=== PATIENT | male | born 1945 | race Caucasian/White ===

== ENCOUNTER 2020-09-01 11:28 | Inpatient (IN) ==
[2020-09-01 12:18] LABS: Nucleated Red Blood Cells 0.3 /100 WBC (0)
[2020-09-01 12:20] LABS: Hematocrit 36.7 % (37.5-50.1); Hemoglobin 12.3 g/dL (12.9-16.9); Immature Platelets 11.8 % (1.1-6.1); Mean Corpuscular HGB Conc 33.5 g/dL (31.6-35.5); Mean Corpuscular Hemoglobin 30.2 pg (28.0-33.3); Mean Corpuscular Volume 90.2 fL (83.0-100.0); Mean Platelet Volume 12.7 fL (9.4-12.4); Red Blood Count 4.07 M/mcL (4.19-5.50); Red Cell Distribution Width 13.5 % (11.5-14.5); White Blood Count 9.8 K/mcL (4.3-11.1)
[2020-09-01 12:23] LABS: Platelet Count 53 K/mcL (140-400)
[2020-09-01] MEDS ORDERED: 0.9 % Sodium Chloride 1,000 ML IVC ONE (12:37)
[2020-09-01 12:57] LABS: Alanine Aminotransferase 633 Units/L (7-52); Albumin 3.3 g/dL (3.5-5.7); Albumin/Globulin Ratio 1.4 (1.1-2.2); Alkaline Phosphatase 99 Units/L (34-104); Aspartate Amino Transferase 390 Units/L (13-39); BUN/Creatinine Ratio 43 (6-26); Bilirubin,Total 3.6 mg/dL (0.3-1.0); Blood Urea Nitrogen 62 mg/dL (8-23); Calcium 8.5 mg/dL (8.6-10.3); Carbon Dioxide 14 mEq/L (23-29); Chloride 92 mEq/L (98-107); Globulin 2.3 g/dL (2.4-3.5); Glucose 419 mg/dL (70-105); Osmolality,Calculated 299 (280-300); Potassium 4.8 mEq/L (3.5-5.1); Sodium 127 mEq/L (136-145); Total Protein 5.6 g/dL (6.4-8.9); Troponin I 0.28 ng/mL (< 0.04); eGFR For African Americans 58 (> 60); eGFR For Non-African Americans 48 (> 60)
[2020-09-01] MEDS ORDERED: cefTRIAXone 1,000 MG in 0.9 % Sodium Chloride Mini Bag 100 ML IVPB ONE (12:58)
[2020-09-01 12:59] LABS: INR 1.4; Prothrombin Time 15.9 Seconds (9.4-12.1)
[2020-09-01 13:01] LABS: Activated Partial Thrombo Time 27.5 Seconds (26.0-36.0)
[2020-09-01 13:15] LABS: Lymphocytes # 0.8 K/mcL (0.6-4.6); Monocytes # 0.7 K/mcL (0.0-1.3); Neutrophils # 8.1 K/mcL (1.6-8.9)
[2020-09-01 13:17] LABS: Platelet Estimate Decreased (Normal)
[2020-09-01 13:18] LABS: Reactive Lymphocytes Present (Not Present)
[2020-09-01] MEDS ORDERED: Dexamethasone 4 MG/ML VIAL IVP ONE (13:21)
[2020-09-01 13:27] LABS: Bilirubin,Urine Negative (Negative); Blood,Urine Negative (Negative); Clarity,Urine Clear (Clear); Color,Urine Yellow (Yellow); Glucose,Urine (UA) >=1000 mg/dL (Normal); Hyaline Casts,Urine Many per lpf (None Seen); Ketones,Urine 10 mg/dL (Negative); Leukocyte Esterase,Urine Negative (Negative); Nitrite,Urine Negative (Negative); PH,Urine 5.5 pH Units (5.0-8.0); Protein,Urine Trace mg/dL (Neg-Trace); RBC,Urine 0-3 per hpf (0-3); Specific Gravity,Urine 1.021 (1.010-1.025); Urobilinogen,Urine Normal (Normal); WBC,Urine 0-3 per hpf (0-3)
[2020-09-01 13:44] LABS: SARS-CoV-2 DETECTED (Not Detect)
[2020-09-01 13:46] LABS: Adenovirus Not Detected (Not Detect); Bordetella Pertussis Not Detected (Not Detect); Chlamydophila pneumoniae Not Detected (Not Detect); Coronavirus 229E Not Detected (Not Detect); Coronavirus HKU1 Not Detected (Not Detect); Coronavirus NL63 Not Detected (Not Detect); Coronavirus OC43 Not Detected (Not Detect); Human Metapneumovirus Not Detected (Not Detect); Human Rhinovirus/Enterovirus Not Detected (Not Detect); Influenza A Subtype 2009 H1 Not Detected (Not Detect); Influenza B Not Detected (Not Detect); Mycoplasma pneumoniae Not Detected (Not Detect); Parainfluenza Virus 1 Not Detected (Not Detect); Parainfluenza Virus 2 Not Detected (Not Detect); Parainfluenza Virus 3 Not Detected (Not Detect); Parainfluenza Virus 4 Not Detected (Not Detect); Respiratory Syncytial Virus Not Detected (Not Detect)
[2020-09-01 14:01] LABS: Magnesium 2.5 mg/dL (1.6-2.6); Phosphorous 5.3 mg/dL (2.7-4.5)
[2020-09-01] MEDS ORDERED: Naloxone 0.4 MG/ML INJ IVP PRN (16:13)
[2020-09-01] MEDS ORDERED: Ondansetron 4 MG/2 ML VIAL IVP PRN (16:13)
[2020-09-01] MEDS ORDERED: *HR* Dextrose 50 % in Water (Vial) 50 ML VIAL IVP PRN (16:15)
[2020-09-01] MEDS ORDERED: Dextrose Gel 15 GM/37.5 ML TUBE PO PRN ×2 (16:15)
[2020-09-01] MEDS ORDERED: D5% in Water 1,000 ML IVC PRN (16:15)
[2020-09-01] MEDS ORDERED: Insulin Human Regular 15 UNIT in 0.9 % Sodium Chloride 10 ML IV ONE (16:16)
[2020-09-01] MEDS ORDERED: Sodium Bicarbonate 150 MEQ in Water for inj. (sterile) 1,000 ML IVC SCH ×2 (16:17→17:30)
[2020-09-01] MEDS ORDERED: Azithromycin 500 MG in 0.9 % Sodium Chloride 250 ML IVPB SCH (17:00)
[2020-09-01] MEDS ORDERED: 0.9 % Sodium Chloride 1,000 ML IVC SCH (17:15)
[2020-09-01 17:40] LABS: ABG Base Excess -6 mEq/L (-2 to 3); ABG HCO3 17 mEq/L (21-27); ABG Oxygen Saturation 92 % (95-98); ABG PCO2 26 mmHg (35-45); ABG PH 7.43 pH Units (7.32-7.45); ABG PO2 60 mmHg (85-104); ABG TCO2 18 mEq/L (20-26); Blood Gas Pressure Support 10 cm H2O
[2020-09-01] MEDS: DilTIAZem 50 MG/50 ML IV.SOLN IVC SCH ×2 (17:54→22:49)
[2020-09-01 18:07] LABS: C-Reactive Protein 156 mg/L (Less than 10); Lactate Dehydrogenase 701 Units/L (140-271)
[2020-09-01 18:13] LABS: Ferritin > 1500 ng/mL (20-250)
[2020-09-01] MEDS: Doxycycline 100 MG in 0.9 % Sodium Chloride Mini Bag 100 ML IVPB SCH (18:33)
[2020-09-01 19:16] LABS: Hematocrit 32.7 % (37.5-50.1); Hemoglobin 11.4 g/dL (12.9-16.9)
[2020-09-01 19:29] LABS: Acetaminophen < 10 mcg/mL (10-20); BUN/Creatinine Ratio 54 (6-26); Blood Urea Nitrogen 51 mg/dL (8-23); Calcium 8.2 mg/dL (8.6-10.3); Carbon Dioxide 18 mEq/L (23-29); Chloride 102 mEq/L (98-107); Glucose 214 mg/dL (70-105); Osmolality,Calculated 292 (280-300); Potassium 4.2 mEq/L (3.5-5.1); Salicylate < 2.5 mg/dL (15.0-30.0); Sodium 131 mEq/L (136-145); eGFR For African Americans > 60 (> 60); eGFR For Non-African Americans > 60 (> 60)
[2020-09-01] MEDS: Insulin LISPRO 300 UNITS/3 ML VIAL SUBQ SCH (20:36)
[2020-09-02 03:39] LABS: Basophils % 0.3 %; Hematocrit 31.5 % (37.5-50.1); Hemoglobin 11.1 g/dL (12.9-16.9); Mean Corpuscular HGB Conc 35.2 g/dL (31.6-35.5); Mean Corpuscular Hemoglobin 31.4 pg (28.0-33.3); Mean Corpuscular Volume 89.2 fL (83.0-100.0); Red Blood Count 3.53 M/mcL (4.19-5.50); Red Cell Distribution Width 13.7 % (11.5-14.5)
[2020-09-02 03:41] LABS: Immature Granulocytes % 6.4 % (0-4); Immature Platelets 6.7 % (1.1-6.1); Lymphocytes # 0.6 K/mcL (0.6-4.6); Lymphocytes % 8.4 %; Mean Platelet Volume 12.2 fL (9.4-12.4); Monocytes # 0.5 K/mcL (0.0-1.3); Monocytes % 6.3 %; Nucleated Red Blood Cells 1.3 /100 WBC (0); Segmented Neutrophils % 78.6 %; White Blood Count 7.2 K/mcL (4.3-11.1)
[2020-09-02 04:02] LABS: Alanine Aminotransferase 428 Units/L (7-52); Albumin 2.9 g/dL (3.5-5.7); Albumin/Globulin Ratio 1.6 (1.1-2.2); Alkaline Phosphatase 88 Units/L (34-104); Aspartate Amino Transferase 168 Units/L (13-39); BUN/Creatinine Ratio 53 (6-26); Bilirubin,Direct 0.5 mg/dL (0.0-0.2); Bilirubin,Indirect 1.4 mg/dL (0.0-1.0); Bilirubin,Total 1.9 mg/dL (0.3-1.0); Blood Urea Nitrogen 43 mg/dL (8-23); Calcium 7.9 mg/dL (8.6-10.3); Carbon Dioxide 21 mEq/L (23-29); Chloride 101 mEq/L (98-107); Globulin 1.8 g/dL (2.4-3.5); Glucose 171 mg/dL (70-105); Osmolality,Calculated 289 (280-300); Potassium 4.3 mEq/L (3.5-5.1); Sodium 132 mEq/L (136-145); Total Protein 4.7 g/dL (6.4-8.9); eGFR For African Americans > 60 (> 60); eGFR For Non-African Americans > 60 (> 60)
[2020-09-02 04:09] LABS: Neutrophils # 5.7 K/mcL (1.6-8.9); Platelet Count 37 K/mcL (140-400); Platelet Estimate Decreased (Normal)
[2020-09-02] MEDS: Insulin LISPRO 300 UNITS/3 ML VIAL SUBQ SCH ×7 (04:12→20:28)
[2020-09-02 05:45] LABS: Troponin I 0.17 ng/mL (< 0.04)
[2020-09-02] MEDS: Doxycycline 100 MG in 0.9 % Sodium Chloride Mini Bag 100 ML IVPB SCH ×2 (05:45→17:53)
[2020-09-02] MEDS: Pantoprazole 40 MG VIAL IVP SCH ×2 (05:46→17:54)
[2020-09-02 05:52] LABS: ABG Base Excess 2 mEq/L (-2 to 3); ABG HCO3 25 mEq/L (21-27); ABG Oxygen Saturation 97 % (95-98); ABG PCO2 31 mmHg (35-45); ABG PH 7.52 pH Units (7.32-7.45); ABG PO2 82 mmHg (85-104); ABG TCO2 26 mEq/L (20-26)
[2020-09-02] MEDS ORDERED: Insulin DETEMIR 100 UNIT/ML X5UNITS SUBQ SCH (08:00)
[2020-09-02] MEDS: cefTRIAXone 1,000 MG in Water for inj. (sterile) 10 ML IVP SCH (08:02)
[2020-09-02] MEDS: Dexamethasone 4 MG/ML VIAL IVP SCH (08:03)
[2020-09-02] MEDS: Furosemide 40 MG/4 ML VIAL IVP SCH ×2 (11:13→20:10)
[2020-09-02] MEDS: Loratadine 10 MG TABLET PO SCH (11:14)
[2020-09-02] MEDS: Ipratropium 1 PUFF INHALER IH SCH ×4 (11:20→23:47)
[2020-09-02] MEDS: Metoprolol XL (24 HR) Succ 50 MG TAB.ER.24H PO SCH (20:11)
[2020-09-02] MEDS: Pregabalin 50 MG CAPSULE PO SCH (20:11)
[2020-09-03] MEDS: Ipratropium 1 PUFF INHALER IH SCH ×5 (04:14→19:53)
[2020-09-03] MEDS: Pantoprazole 40 MG VIAL IVP SCH ×2 (05:37→18:10)
[2020-09-03] MEDS: Doxycycline 100 MG in 0.9 % Sodium Chloride Mini Bag 100 ML IVPB SCH ×2 (05:37→18:10)
[2020-09-03 07:05] LABS: Fibrinogen 341 mg/dL (169-393)
[2020-09-03 07:12] LABS: D-Dimer 7014 ng/mLFEU (0-500)
[2020-09-03 07:26] LABS: Hemoglobin 10.2 g/dL (12.9-16.9)
[2020-09-03 07:28] LABS: Hematocrit 29.6 % (37.5-50.1); Immature Platelets 8.1 % (1.1-6.1); Mean Corpuscular HGB Conc 34.5 g/dL (31.6-35.5); Mean Corpuscular Hemoglobin 31.5 pg (28.0-33.3); Mean Corpuscular Volume 91.4 fL (83.0-100.0); Mean Platelet Volume 11.2 fL (9.4-12.4); Nucleated Red Blood Cells 1.2 /100 WBC (0); Red Blood Count 3.24 M/mcL (4.19-5.50); Red Cell Distribution Width 13.7 % (11.5-14.5); White Blood Count 5.8 K/mcL (4.3-11.1)
[2020-09-03 07:57] LABS: Albumin 2.8 g/dL (3.5-5.7); Albumin/Globulin Ratio 1.8 (1.1-2.2); Bilirubin,Direct 0.4 mg/dL (0.0-0.2); Bilirubin,Indirect 1.2 mg/dL (0.0-1.0); Bilirubin,Total 1.6 mg/dL (0.3-1.0); Globulin 1.6 g/dL (2.4-3.5); Total Protein 4.4 g/dL (6.4-8.9)
[2020-09-03 08:02] LABS: BUN/Creatinine Ratio 41 (6-26); Blood Urea Nitrogen 38 mg/dL (8-23); Calcium 7.7 mg/dL (8.6-10.3); Carbon Dioxide 26 mEq/L (23-29); Chloride 101 mEq/L (98-107); Glucose 154 mg/dL (70-105); Magnesium 2.4 mg/dL (1.6-2.6); Osmolality,Calculated 294 (280-300); Potassium 3.7 mEq/L (3.5-5.1); Sodium 136 mEq/L (136-145); eGFR For African Americans > 60 (> 60); eGFR For Non-African Americans > 60 (> 60)
[2020-09-03 08:11] LABS: Platelet Count 35 K/mcL (140-400)
[2020-09-03] MEDS: Insulin LISPRO 300 UNITS/3 ML VIAL SUBQ SCH ×4 (08:18→20:31)
[2020-09-03] MEDS: cefTRIAXone 1,000 MG in Water for inj. (sterile) 10 ML IVP SCH (08:19)
[2020-09-03] MEDS: Loratadine 10 MG TABLET PO SCH (08:21)
[2020-09-03] MEDS: Dexamethasone 4 MG/ML VIAL IVP SCH (08:22)
[2020-09-03] MEDS: Furosemide 40 MG/4 ML VIAL IVP SCH ×2 (08:23→20:29)
[2020-09-03] MEDS: Insulin DETEMIR 100 UNIT/ML X5UNITS SUBQ SCH (08:24)
[2020-09-03 12:51] LABS: Lymphocytes # 0.4 K/mcL (0.6-4.6); Monocytes # 0.5 K/mcL (0.0-1.3); Neutrophils # 4.9 K/mcL (1.6-8.9); Platelet Estimate Marked Decrease (Normal)
[2020-09-03] MEDS: Metoprolol XL (24 HR) Succ 50 MG TAB.ER.24H PO SCH (20:29)
[2020-09-03] MEDS: Pregabalin 50 MG CAPSULE PO SCH (20:29)
[2020-09-04] MEDS: Ipratropium 1 PUFF INHALER IH SCH ×7 (00:06→23:47)
[2020-09-04 02:40] LABS: Nucleated Red Blood Cells 0.6 /100 WBC (0); Red Cell Distribution Width 13.4 % (11.5-14.5)
[2020-09-04 02:41] LABS: Basophils % 0.2 %; Eosinophils % 0.4 %; Hematocrit 29.4 % (37.5-50.1); Hemoglobin 10.2 g/dL (12.9-16.9); Immature Granulocytes % 9.6 % (0-4); Immature Platelets 6.8 % (1.1-6.1); Lymphocytes # 0.3 K/mcL (0.6-4.6); Lymphocytes % 5.8 %; Mean Corpuscular HGB Conc 34.7 g/dL (31.6-35.5); Mean Corpuscular Hemoglobin 31.1 pg (28.0-33.3); Mean Corpuscular Volume 89.6 fL (83.0-100.0); Mean Platelet Volume 11.2 fL (9.4-12.4); Monocytes # 0.5 K/mcL (0.0-1.3); Monocytes % 9.6 %; Neutrophils # 3.7 K/mcL (1.6-8.9); Red Blood Count 3.28 M/mcL (4.19-5.50); Segmented Neutrophils % 74.4 %
[2020-09-04 02:43] LABS: Fibrinogen 258 mg/dL (169-393)
[2020-09-04 02:52] LABS: Albumin 2.7 g/dL (3.5-5.7); Albumin/Globulin Ratio 1.8 (1.1-2.2); Bilirubin,Direct 0.5 mg/dL (0.0-0.2); Bilirubin,Indirect 1.2 mg/dL (0.0-1.0); Bilirubin,Total 1.7 mg/dL (0.3-1.0); Globulin 1.5 g/dL (2.4-3.5); Total Protein 4.2 g/dL (6.4-8.9)
[2020-09-04 02:53] LABS: D-Dimer 10286 ng/mLFEU (0-500)
[2020-09-04 02:54] LABS: BUN/Creatinine Ratio 44 (6-26); Blood Urea Nitrogen 38 mg/dL (8-23); Calcium 7.6 mg/dL (8.6-10.3); Carbon Dioxide 28 mEq/L (23-29); Chloride 100 mEq/L (98-107); Glucose 180 mg/dL (70-105); Magnesium 2.3 mg/dL (1.6-2.6); Osmolality,Calculated 294 (280-300); Phosphorous 3.5 mg/dL (2.7-4.5); Sodium 135 mEq/L (136-145); eGFR For African Americans > 60 (> 60); eGFR For Non-African Americans > 60 (> 60)
[2020-09-04 02:55] LABS: % Iron Saturation 32 % (20-55); Iron 63 mcg/dL (65-175); Transferrin 139 mg/dL (203-362)
[2020-09-04 03:04] LABS: Platelet Count 29 K/mcL (140-400)
[2020-09-04 03:14] LABS: Ferritin 1398 ng/mL (20-250)
[2020-09-04 03:22] LABS: Folate > 22.3 ng/mL (3.0-16.0); Vitamin B12 > 1500 pg/mL (250-1100)
[2020-09-04 03:24] LABS: Platelet Estimate Marked Decrease (Normal); Reactive Lymphocytes Present (Not Present)
[2020-09-04] MEDS: Pantoprazole 40 MG VIAL IVP SCH ×2 (05:30→17:18)
[2020-09-04] MEDS: Doxycycline 100 MG in 0.9 % Sodium Chloride Mini Bag 100 ML IVPB SCH (05:30)
[2020-09-04] MEDS ORDERED: 0.9 % Sodium Chloride 250 ML IVC SCH (07:30)
[2020-09-04] MEDS: cefTRIAXone 1,000 MG in Water for inj. (sterile) 10 ML IVP SCH (08:04)
[2020-09-04] MEDS: Insulin DETEMIR 100 UNIT/ML X5UNITS SUBQ SCH (08:05)
[2020-09-04] MEDS: Loratadine 10 MG TABLET PO SCH (08:05)
[2020-09-04] MEDS: Dexamethasone 4 MG/ML VIAL IVP SCH (08:06)
[2020-09-04] MEDS: Furosemide 40 MG/4 ML VIAL IVP SCH ×2 (08:06→21:08)
[2020-09-04] MEDS: Insulin LISPRO 300 UNITS/3 ML VIAL SUBQ SCH ×4 (08:07→21:09)
[2020-09-04] MEDS: Metoprolol XL (24 HR) Succ 50 MG TAB.ER.24H PO SCH (21:08)
[2020-09-04] MEDS: Pregabalin 50 MG CAPSULE PO SCH (21:09)
[2020-09-04] MEDS: Doxycycline 100 MG CAPSULE PO SCH (21:09)
[2020-09-05] MEDS: Ipratropium 1 PUFF INHALER IH SCH ×6 (03:50→23:09)
[2020-09-05] MEDS: Pantoprazole 40 MG VIAL IVP SCH ×2 (04:59→18:06)
[2020-09-05 06:46] LABS: Hematocrit 31.4 % (37.5-50.1); Hemoglobin 10.8 g/dL (12.9-16.9); Mean Corpuscular HGB Conc 34.4 g/dL (31.6-35.5); Mean Corpuscular Hemoglobin 30.7 pg (28.0-33.3); Mean Corpuscular Volume 89.2 fL (83.0-100.0); Mean Platelet Volume 11.8 fL (9.4-12.4); Red Blood Count 3.52 M/mcL (4.19-5.50); White Blood Count 5.4 K/mcL (4.3-11.1)
[2020-09-05 06:49] LABS: Platelet Count 24 K/mcL (140-400)
[2020-09-05 07:05] LABS: BUN/Creatinine Ratio 46 (6-26); Blood Urea Nitrogen 32 mg/dL (8-23); Calcium 7.8 mg/dL (8.6-10.3); Carbon Dioxide 27 mEq/L (23-29); Chloride 103 mEq/L (98-107); Glucose 119 mg/dL (70-105); Magnesium 2.3 mg/dL (1.6-2.6); Osmolality,Calculated 290 (280-300); Sodium 136 mEq/L (136-145); eGFR For African Americans > 60 (> 60); eGFR For Non-African Americans > 60 (> 60)
[2020-09-05] MEDS: Insulin LISPRO 300 UNITS/3 ML VIAL SUBQ SCH ×4 (07:43→20:32)
[2020-09-05] MEDS ORDERED: 0.9 % Sodium Chloride 250 ML IVC SCH (08:00)
[2020-09-05 08:42] LABS: Lymphocytes # 0.5 K/mcL (0.6-4.6); Monocytes # 0.4 K/mcL (0.0-1.3); Neutrophils # 4.4 K/mcL (1.6-8.9); Platelet Estimate Decreased (Normal)
[2020-09-05] MEDS: cefTRIAXone 1,000 MG in Water for inj. (sterile) 10 ML IVP SCH (08:43)
[2020-09-05] MEDS: Furosemide 40 MG/4 ML VIAL IVP SCH ×2 (08:44→20:01)
[2020-09-05] MEDS: Dexamethasone 4 MG/ML VIAL IVP SCH (08:45)
[2020-09-05] MEDS: Doxycycline 100 MG CAPSULE PO SCH ×2 (08:45→20:01)
[2020-09-05] MEDS: Insulin DETEMIR 100 UNIT/ML X5UNITS SUBQ SCH (08:48)
[2020-09-05] MEDS: Loratadine 10 MG TABLET PO SCH (08:48)
[2020-09-05 12:13] LABS: ABG Base Excess 4 mEq/L (-2 to 3); ABG HCO3 26 mEq/L (21-27); ABG Oxygen Saturation 93 % (95-98); ABG PCO2 31 mmHg (35-45); ABG PH 7.53 pH Units (7.32-7.45); ABG PO2 60 mmHg (85-104); ABG TCO2 27 mEq/L (20-26)
[2020-09-05] MEDS: Pregabalin 50 MG CAPSULE PO SCH (20:01)
[2020-09-05] MEDS: Metoprolol XL (24 HR) Succ 50 MG TAB.ER.24H PO SCH (20:01)
[2020-09-05] MEDS: Artificial Tears SOLN 15 ML BOTTLE BOTH EYES SCH (20:02)
[2020-09-06] MEDS: Ipratropium 1 PUFF INHALER IH SCH ×5 (03:49→20:18)
[2020-09-06 04:48] LABS: VBG HCO3 29 mEq/L (21-27); VBG PCO2 35 mmHg (41-51); VBG PH 7.52 pH Units (7.32-7.42); VBG PO2 75 mmHg (25-50)
[2020-09-06 04:51] LABS: Hemoglobin 11.6 g/dL (12.9-16.9); Mean Corpuscular Hemoglobin 30.5 pg (28.0-33.3)
[2020-09-06 04:52] LABS: Hematocrit 34.1 % (37.5-50.1); Immature Platelets 5.5 % (1.1-6.1); Mean Corpuscular Volume 89.7 fL (83.0-100.0); Mean Platelet Volume 10.2 fL (9.4-12.4); Red Cell Distribution Width 13.9 % (11.5-14.5); White Blood Count 6.2 K/mcL (4.3-11.1)
[2020-09-06 05:04] LABS: BUN/Creatinine Ratio 45 (6-26); Blood Urea Nitrogen 33 mg/dL (8-23); Calcium 8.6 mg/dL (8.6-10.3); Carbon Dioxide 26 mEq/L (23-29); Chloride 100 mEq/L (98-107); Glucose 160 mg/dL (70-105); Magnesium 2.2 mg/dL (1.6-2.6); Osmolality,Calculated 289 (280-300); Platelet Count 34 K/mcL (140-400); Potassium 4.1 mEq/L (3.5-5.1); Sodium 134 mEq/L (136-145); eGFR For African Americans > 60 (> 60); eGFR For Non-African Americans > 60 (> 60)
[2020-09-06] MEDS: Pantoprazole 40 MG VIAL IVP SCH ×2 (05:45→17:00)
[2020-09-06 06:18] LABS: Monocytes # 0.3 K/mcL (0.0-1.3); Platelet Estimate Normal (Normal); Reactive Lymphocytes Present (Not Present)
[2020-09-06] MEDS: Insulin LISPRO 300 UNITS/3 ML VIAL SUBQ SCH ×4 (07:33→20:05)
[2020-09-06] MEDS: Loratadine 10 MG TABLET PO SCH (09:26)
[2020-09-06] MEDS: Sennosides/Docusate Sodium TABLET PO SCH (09:26)
[2020-09-06] MEDS: Doxycycline 100 MG CAPSULE PO SCH ×2 (09:26→19:36)
[2020-09-06] MEDS: cefTRIAXone 1,000 MG in Water for inj. (sterile) 10 ML IVP SCH (09:26)
[2020-09-06] MEDS: Dexamethasone 4 MG/ML VIAL IVP SCH (09:27)
[2020-09-06] MEDS: Furosemide 40 MG/4 ML VIAL IVP SCH ×2 (09:27→19:36)
[2020-09-06] MEDS: Insulin DETEMIR 100 UNIT/ML X5UNITS SUBQ SCH (09:28)
[2020-09-06] MEDS: Artificial Tears SOLN 15 ML BOTTLE BOTH EYES SCH ×4 (09:29→20:05)
[2020-09-06] MEDS ORDERED: Morphine Sulfate 2 MG/ML SYRINGE IVP PRN (15:44)
[2020-09-06] MEDS: Metoprolol XL (24 HR) Succ 50 MG TAB.ER.24H PO SCH (19:36)
[2020-09-06] MEDS: Pregabalin 50 MG CAPSULE PO SCH (19:36)
[2020-09-07] MEDS: Ipratropium 1 PUFF INHALER IH SCH ×6 (00:20→20:14)
[2020-09-07 03:16] LABS: Basophils % 0.1 %; Hematocrit 35.2 % (37.5-50.1); Hemoglobin 12.3 g/dL (12.9-16.9); Immature Granulocytes % 4.3 % (0-4); Immature Platelets 8.7 % (1.1-6.1); Lymphocytes # 0.5 K/mcL (0.6-4.6); Mean Corpuscular HGB Conc 34.9 g/dL (31.6-35.5); Mean Corpuscular Hemoglobin 30.7 pg (28.0-33.3); Mean Corpuscular Volume 87.8 fL (83.0-100.0); Mean Platelet Volume 11.8 fL (9.4-12.4); Monocytes # 0.5 K/mcL (0.0-1.3); Monocytes % 6.1 %; Neutrophils # 6.4 K/mcL (1.6-8.9); Red Blood Count 4.01 M/mcL (4.19-5.50); Red Cell Distribution Width 14.3 % (11.5-14.5); Segmented Neutrophils % 82.5 %; White Blood Count 7.7 K/mcL (4.3-11.1)
[2020-09-07 03:19] LABS: Platelet Count 25 K/mcL (140-400)
[2020-09-07 03:28] LABS: D-Dimer 7066 ng/mLFEU (0-500); Fibrinogen 391 mg/dL (169-393)
[2020-09-07 03:34] LABS: BUN/Creatinine Ratio 51 (6-26); Blood Urea Nitrogen 37 mg/dL (8-23); Calcium 8.8 mg/dL (8.6-10.3); Carbon Dioxide 26 mEq/L (23-29); Chloride 99 mEq/L (98-107); Glucose 152 mg/dL (70-105); Osmolality,Calculated 290 (280-300); Phosphorous 3.8 mg/dL (2.7-4.5); Potassium 3.9 mEq/L (3.5-5.1); Sodium 134 mEq/L (136-145); eGFR For African Americans > 60 (> 60); eGFR For Non-African Americans > 60 (> 60)
[2020-09-07 05:14] LABS: ABG Base Excess 3 mEq/L (-2 to 3); ABG HCO3 26 mEq/L (21-27); ABG Oxygen Saturation 99 % (95-98); ABG PCO2 31 mmHg (35-45); ABG PH 7.53 pH Units (7.32-7.45); ABG PO2 123 mmHg (85-104); ABG TCO2 27 mEq/L (20-26)
[2020-09-07] MEDS: Pantoprazole 40 MG VIAL IVP SCH ×2 (05:23→17:38)
[2020-09-07] MEDS: *HR* LORazepam 2 MG/ML VIAL IVP PRN ×2 (05:23→20:22)
[2020-09-07] MEDS ORDERED: 0.9 % Sodium Chloride 250 ML IVC SCH (07:45)
[2020-09-07] MEDS: Insulin LISPRO 300 UNITS/3 ML VIAL SUBQ SCH ×4 (08:02→20:20)
[2020-09-07] MEDS: Sennosides/Docusate Sodium TABLET PO SCH (08:08)
[2020-09-07] MEDS: Dexamethasone 4 MG/ML VIAL IVP SCH (08:08)
[2020-09-07] MEDS: Loratadine 10 MG TABLET PO SCH (08:08)
[2020-09-07] MEDS: cefTRIAXone 1,000 MG in Water for inj. (sterile) 10 ML IVP SCH (08:08)
[2020-09-07] MEDS: Doxycycline 100 MG CAPSULE PO SCH ×2 (08:08→20:19)
[2020-09-07] MEDS: Insulin DETEMIR 100 UNIT/ML X5UNITS SUBQ SCH (08:16)
[2020-09-07] MEDS: Furosemide 40 MG/4 ML VIAL IVP SCH ×2 (08:18→20:21)
[2020-09-07 09:17] LABS: Thyroid Stimulating Hormone 1.932 mcIU/mL (0.340-5.600)
[2020-09-07] MEDS: Artificial Tears SOLN 15 ML BOTTLE BOTH EYES SCH ×4 (09:55→20:16)
[2020-09-07] MEDS: Pregabalin 50 MG CAPSULE PO SCH (20:20)
[2020-09-07] MEDS: Metoprolol XL (24 HR) Succ 50 MG TAB.ER.24H PO SCH (20:20)
[2020-09-07] MEDS ORDERED: Haloperidol Lactate 5 MG/ML VIAL IVP ONE (21:23)
[2020-09-07] MEDS: Dexmedetomidine HCl 400 MCG/100 ML MLS IVC SCH (23:11)
[2020-09-08] MEDS: Ipratropium 1 PUFF INHALER IH SCH ×7 (00:13→23:52)
[2020-09-08 03:43] LABS: Basophils % 0.1 %
[2020-09-08 03:45] LABS: D-Dimer 5365 ng/mLFEU (0-500); Hematocrit 35.8 % (37.5-50.1); Hemoglobin 12.5 g/dL (12.9-16.9); Immature Granulocytes % 3.9 % (0-4); Immature Platelets 5.6 % (1.1-6.1); Lymphocytes # 0.5 K/mcL (0.6-4.6); Lymphocytes % 5.8 %; Mean Corpuscular HGB Conc 34.9 g/dL (31.6-35.5); Mean Corpuscular Hemoglobin 31.1 pg (28.0-33.3); Mean Corpuscular Volume 89.1 fL (83.0-100.0); Mean Platelet Volume 11.2 fL (9.4-12.4); Monocytes # 0.6 K/mcL (0.0-1.3); Monocytes % 7.3 %; Red Blood Count 4.02 M/mcL (4.19-5.50); Red Cell Distribution Width 14.5 % (11.5-14.5); Segmented Neutrophils % 82.9 %; White Blood Count 8.4 K/mcL (4.3-11.1)
[2020-09-08 03:47] LABS: Platelet Count 43 K/mcL (140-400)
[2020-09-08 03:48] LABS: Fibrinogen 377 mg/dL (169-393)
[2020-09-08 04:05] LABS: BUN/Creatinine Ratio 62 (6-26); Blood Urea Nitrogen 39 mg/dL (8-23); Calcium 8.7 mg/dL (8.6-10.3); Carbon Dioxide 28 mEq/L (23-29); Chloride 99 mEq/L (98-107); Glucose 62 mg/dL (70-105); Osmolality,Calculated 293 (280-300); Potassium 3.4 mEq/L (3.5-5.1); Sodium 138 mEq/L (136-145); eGFR For African Americans > 60 (> 60); eGFR For Non-African Americans > 60 (> 60)
[2020-09-08] MEDS: Pantoprazole 40 MG VIAL IVP SCH ×2 (05:45→17:21)
[2020-09-08] MEDS: Dexamethasone 4 MG/ML VIAL IVP SCH (08:08)
[2020-09-08] MEDS: Sennosides/Docusate Sodium TABLET PO SCH (08:09)
[2020-09-08] MEDS: Insulin LISPRO 300 UNITS/3 ML VIAL SUBQ SCH ×4 (08:10→20:52)
[2020-09-08] MEDS: Loratadine 10 MG TABLET PO SCH (08:10)
[2020-09-08] MEDS: Artificial Tears SOLN 15 ML BOTTLE BOTH EYES SCH ×4 (08:10→20:52)
[2020-09-08] MEDS: Insulin DETEMIR 100 UNIT/ML X5UNITS SUBQ SCH (08:11)
[2020-09-08 14:57] LABS: Alanine Aminotransferase 67 Units/L (7-52); Albumin/Globulin Ratio 1.4 (1.1-2.2); Alkaline Phosphatase 107 Units/L (34-104); Aspartate Amino Transferase 22 Units/L (13-39); Bilirubin,Direct 0.4 mg/dL (0.0-0.2); Bilirubin,Indirect 1.6 mg/dL (0.0-1.0); Globulin 2.1 g/dL (2.4-3.5); Total Protein 5.1 g/dL (6.4-8.9)
[2020-09-08] MEDS: Pregabalin 50 MG CAPSULE PO SCH (20:52)
[2020-09-08] MEDS: Metoprolol XL (24 HR) Succ 50 MG TAB.ER.24H PO SCH (20:56)
[2020-09-09 03:00] LABS: Hematocrit 38.2 % (37.5-50.1); Hemoglobin 13.2 g/dL (12.9-16.9); Mean Corpuscular HGB Conc 34.6 g/dL (31.6-35.5)
[2020-09-09 03:02] LABS: Basophils % 0.2 %; Immature Granulocytes % 3.5 % (0-4); Immature Platelets 11.5 % (1.1-6.1); Lymphocytes # 0.5 K/mcL (0.6-4.6); Lymphocytes % 5.1 %; Mean Corpuscular Hemoglobin 30.6 pg (28.0-33.3); Mean Corpuscular Volume 88.6 fL (83.0-100.0); Mean Platelet Volume 11.2 fL (9.4-12.4); Monocytes # 1.1 K/mcL (0.0-1.3); Monocytes % 10.4 %; Neutrophils # 8.2 K/mcL (1.6-8.9); Red Blood Count 4.31 M/mcL (4.19-5.50); Red Cell Distribution Width 14.5 % (11.5-14.5); Segmented Neutrophils % 80.8 %; White Blood Count 10.2 K/mcL (4.3-11.1)
[2020-09-09 03:18] LABS: BUN/Creatinine Ratio 64 (6-26); Blood Urea Nitrogen 46 mg/dL (8-23); Calcium 8.7 mg/dL (8.6-10.3); Carbon Dioxide 29 mEq/L (23-29); Chloride 97 mEq/L (98-107); Glucose 60 mg/dL (70-105); Magnesium 2.2 mg/dL (1.6-2.6); Osmolality,Calculated 288 (280-300); Potassium 4.1 mEq/L (3.5-5.1); Sodium 134 mEq/L (136-145); eGFR For African Americans > 60 (> 60); eGFR For Non-African Americans > 60 (> 60)
[2020-09-09 03:29] LABS: Platelet Count 32 K/mcL (140-400)
[2020-09-09] MEDS: Ipratropium 1 PUFF INHALER IH SCH ×6 (04:02→23:08)
[2020-09-09] MEDS: Pantoprazole 40 MG VIAL IVP SCH (05:03)
[2020-09-09] MEDS: Insulin LISPRO 300 UNITS/3 ML VIAL SUBQ SCH ×4 (07:54→21:29)
[2020-09-09] MEDS: Dexamethasone Sodium Phos/PF 10 MG/ML VIAL IVP SCH (08:08)
[2020-09-09] MEDS: Sennosides/Docusate Sodium TABLET PO SCH (08:09)
[2020-09-09] MEDS: Cholecalciferol (D-3) 1,000 UNIT (25MCG) TABLET PO SCH ×2 (08:09→11:11)
[2020-09-09] MEDS: Insulin DETEMIR 100 UNIT/ML X5UNITS SUBQ SCH (08:10)
[2020-09-09] MEDS: Loratadine 10 MG TABLET PO SCH ×2 (08:11→11:11)
[2020-09-09] MEDS: Artificial Tears SOLN 15 ML BOTTLE BOTH EYES SCH ×4 (08:12→20:10)
[2020-09-09] MEDS: Piperacillin/Tazobactam 3.375 GM in 0.9 % Sodium Chloride Mini Bag 100 ML IVPB SCH ×2 (15:35→23:15)
[2020-09-09] MEDS: Dexmedetomidine HCl 400 MCG/100 ML MLS IVC SCH (16:52)
[2020-09-09] MEDS: Metoprolol XL (24 HR) Succ 50 MG TAB.ER.24H PO SCH (21:00)
[2020-09-10] MEDS: Ipratropium 1 PUFF INHALER IH SCH ×3 (04:09→16:13)
[2020-09-10 06:49] LABS: BUN/Creatinine Ratio 71 (6-26); Blood Urea Nitrogen 74 mg/dL (8-23); Calcium 8.5 mg/dL (8.6-10.3); Carbon Dioxide 16 mEq/L (23-29); Chloride 98 mEq/L (98-107); Glucose 183 mg/dL (70-105); Magnesium 2.5 mg/dL (1.6-2.6); Osmolality,Calculated 305 (280-300); Potassium 4.8 mEq/L (3.5-5.1); Sodium 134 mEq/L (136-145); eGFR For African Americans > 60 (> 60); eGFR For Non-African Americans > 60 (> 60)
[2020-09-10] MEDS ORDERED: Piperacillin/Tazobactam 3.375 GM in 0.9 % Sodium Chloride Mini Bag 100 ML IVPB SCH (08:00)
[2020-09-10] MEDS: Insulin LISPRO 300 UNITS/3 ML VIAL SUBQ SCH (08:30)
[2020-09-10] MEDS: Dexamethasone Sodium Phos/PF 10 MG/ML VIAL IVP SCH (08:33)
[2020-09-10] MEDS ORDERED: Pantoprazole 40 MG VIAL IVP SCH (09:00)
[2020-09-10 10:02] LABS: Hematocrit 40.5 % (37.5-50.1); Hemoglobin 13.3 g/dL (12.9-16.9); Immature Platelets 22.2 % (1.1-6.1); Mean Corpuscular HGB Conc 32.8 g/dL (31.6-35.5); Mean Corpuscular Hemoglobin 30.8 pg (28.0-33.3); Mean Corpuscular Volume 93.8 fL (83.0-100.0); Mean Platelet Volume 13.7 fL (9.4-12.4); Red Blood Count 4.32 M/mcL (4.19-5.50); Red Cell Distribution Width 15.5 % (11.5-14.5); White Blood Count 23.3 K/mcL (4.3-11.1)
[2020-09-10 10:07] LABS: Platelet Count 22 K/mcL (140-400)
[2020-09-10 10:22] LABS: Lymphocytes # 2.3 K/mcL (0.6-4.6); Monocytes # 1.9 K/mcL (0.0-1.3); Neutrophils # 18.6 K/mcL (1.6-8.9)
[2020-09-10 10:23] LABS: Large Platelets Present (Not Present); Platelet Estimate Marked Decrease (Normal); Reactive Lymphocytes Present (Not Present)
[2020-09-10 10:30] VITALS: BP 88/62
[2020-09-10] MEDS: Dexmedetomidine HCl 400 MCG/100 ML MLS IVC SCH (14:38)
[2020-09-10] MEDS: Artificial Tears SOLN 15 ML BOTTLE BOTH EYES SCH (14:40)
[2020-09-10] MEDS: Cholecalciferol (D-3) 1,000 UNIT (25MCG) TABLET PO SCH (14:41)
[2020-09-10] MEDS: Loratadine 10 MG TABLET PO SCH (14:41)
[2020-09-11] MEDS ORDERED: Pregabalin 50 MG CAPSULE PO SCH (21:00)
== END 2020-09-10 11:45 | disposition expired | DRG 871 ==
LOC: 2NENU 11:28 → EMEROOARM 11:28 → SUATTDRO 15:52 → 2NENU 17:17 → SUATTDRO 09-02 13:42
PROVIDERS: ADMIT Internal Medicine; ATTEND Internal Medicine